=== PATIENT | male | born 1950 | race Caucasian/White ===

== ENCOUNTER 2024-06-25 01:20 | Emergency (ER) | payer MEDICARE, BC ==
[~2024-06-25] VITALS: Ht 180.3 cm; Wt 74.8 kg
[2024-06-25 02:11] LABS: BASOPHILS % (AUTO) 1.1 % (0.0-2.0); EOSINOPHILS % (AUTO) 1.7 % (0.0-6.0); HEMATOCRIT 28 % (39-51); HEMOGLOBIN 9.3 g/dL (13.5-17.5); LYMPHOCYTES # (AUTO) 0.6 K/uL (0.8-4.8); LYMPHOCYTES % (AUTO) 23.4 % (20.0-44.0); MEAN CORPUSCULAR HEMOGLOBIN 31 PG (26.0-33.0); MEAN CORPUSCULAR HGB CONC 33 g/dl (31.0-36.0); MEAN CORPUSCULAR VOLUME 92 fL (80-96); MONOCYTES # (AUTO) 0.1 K/uL (0.1-1.30); MONOCYTES % (AUTO) 2.4 % (2.0-12.0); NEUTROPHILS # (AUTO) 1.9 K/uL (1.8-8.9); NEUTROPHILS % (AUTO) 71.4 % (43.0-81.0); PLATELET COUNT (AUTO) 461 K/uL (150-450); RED BLOOD CELL COUNT(AUTO) 3.04 MIL/uL (4.5-6.0); RED CELL DISTRIBUTION WIDTH 15.6 % (11.5-15.0); WHITE BLOOD COUNT (AUTO) 2.6 K/uL (4.3-11.0)
[2024-06-25 02:19] LABS: CALCIUM, SERUM 8.3 mg/dL (8.5-10.1); CARBON DIOXIDE 29 mmol/L (21-32); CHLORIDE 107 mmol/L (98-107); CREATININE 0.8 mg/dL (0.6-1.3); GLUCOSE 102 mg/dL (74-106); POTASSIUM 4.3 mmol/L (3.5-5.1); SODIUM SERUM 141 mmol/L (136-145); UREA NITROGEN, BLOOD 12 mg/dL (7-18)
[2024-06-25] MEDS ORDERED: IOHEXOL-350 100 ML VIAL IV ONE (02:22)
[2024-06-25] MEDS ORDERED: CT SWABBABLE VALVE TRANS SET 1 EA INFUS.SET MC ONE (02:22)
[2024-06-25] MEDS ORDERED: IV NS 0.9% 250 ML IV ONE (02:23)
[2024-06-25 02:25] LABS: INR 1.03 (0.91-1.10); PARTIAL THROMBOPLASTIN TIME 30.3 SEC (24.3-34.3); PROTHROMBIN TIME 10.9 SECS (9.2-11.1)
[2024-06-25 02:29] LABS: ABG BASE EXCESS 0.5 mmol/L (-2.0-2.0); ABG OXYGEN SATURATION 96.9 % (92.0-98.5); ABG PCO2 38.5 mmHg (35.0-45.0); ABG PH 7.426 (7.340-7.440); ABG PO2 97.8 mmHg (75.0-100.0); ABG TOTAL HEMOGLOBIN 10.4 G/dL (14.0-18.0); COHb 0.2 % (0.5-1.5); MetHb 0.5 % (0.0-1.5); O2Hb 96.2 % (94.0-97.0); SITE, ABG Left Radial; VENT MODE, BG NASAL CANNULA
[2024-06-25 02:33] LABS: ALANINE AMINOTRANSFERASE 47 U/L (12-78); ALBUMIN 1.6 g/dL (3.4-5.0); ALKALINE PHOSPHATASE 77 U/L (46-116); ASPARTATE AMINOTRANSFERASE 37 U/L (15-37); BILIRUBIN,DIRECT 0.1 mg/dL (0.0-0.2); BILIRUBIN,TOTAL 0.3 mg/dL (0.2-1.0); NT-PRO BNP 68 pg/mL (0-125); TOTAL PROTEIN, SERUM 5.1 g/dL (6.4-8.2)
[2024-06-25 03:08] LABS: ANISOCYTOSIS 1+; BASOPHILS % (MANUAL) 0 % (0.0-2.0); EOSINOPHILS % (MANUAL) 2 % (0-4); LYMPHOCYTES % (MANUAL) 18 % (16-48); MONOCYTES % (MANUAL) 5 % (0-11.0); NEUTROPHILS % (MANUAL) 75 (42-76); PLATELET ESTIMATE ADEQUATE
[2024-06-25 06:14] VITALS: BP 95/57; TEMP 98.5; O2SAT 100
== END 2024-06-25 06:16 | disposition left against medical advice (07) ==
LOC: ER 01:25
DX: C34.91 Malignant neoplasm of unspecified part of right bronchus or lung (principal); R04.2 Hemoptysis; R06.02 Shortness of breath
CPT/HCPCS: 99285; 71275; 71045; 93005; 82803; 85025; 80048; 80076; 36415; 84484; 85730; 83880; 36600; 85007; J7050; Q9967